=== PATIENT | female | born 1980 | race Caucasian/White ===

== ENCOUNTER → 2022-10-09 09:08 | Outpatient (BNVA) | payer MEDICARE, MEDICAID, SELFPAY | PROVIDERS: PCP Internal Medicine; Visit Provider Internal Medicine Rheumatology | DX: M25.561 Pain in right knee (principal); M25.562 Pain in left knee; M54.50 Low back pain, unspecified; M47.816 Spondylosis without myelopathy or radiculopathy, lumbar region; M25.521 Pain in right elbow; M79.7 Fibromyalgia; G89.29 Other chronic pain | CPT/HCPCS: 99202 ==

== ENCOUNTER 2024-04-07 07:52 | Outpatient (AMB) | payer MEDICARE, MEDICAID, SELFPAY ==
[2024-04-07 08:02] VITALS: BP 118/70; PULSE 89; O2SAT 98; BMI 40.6
--- NOTE | 2024-04-07 08:02 | MHC.OFFVIS ---
Vital Signs 04/07/24 08:02 Height 5 ft 4.5 in Weight 240 lb BMI 40.6 BP 118/70 Blood Pressure Location Lt brachial Position Sitting Pulse 89 Pulse Source Pulse Oximeter Pulse Oximetry (%) 98 Oxygen Delivery Method Room Air Intake Visit Reasons: Joint pain/CM Intake Note: Patient presents today for follow up on joint pain. She was last seen in the office by Dr. Dawkins on 10/09/2022. Allergies morphine Allergy (Severe, Verified 04/07/24 08:04) Shortness of Breath diclofenac Allergy (Intermediate, Verified 04/07/24 08:04) Angioedema amoxicillin Allergy (Unknown, Verified 04/07/24 08:04) Unknown apple Allergy (Unknown, Verified 04/07/24 08:04) Unknown azithromycin Allergy (Unknown, Verified 04/07/24 08:04) Rash doxycycline Allergy (Unknown, Verified 04/07/24 08:04) Rash peanut Allergy (Unknown, Verified 04/07/24 08:04) Unknown Sulfa (Sulfonamide Antibiotics) Allergy (Unknown, Verified 04/07/24 08:04) Unknown tizanidine Allergy (Unknown, Verified 04/07/24 08:04) Angioedema tree nut Allergy (Unknown, Verified 04/07/24 08:04) Unknown HPI Comments Details: Patient is a 43-year-old female with 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 Interval History: Patient last seen 10/2022. At that time was given a diagnosis of fibromyalgia and OA Today patient is here for a 2nd opinion. She states that she gets intermittent pain to her lateral elbows that occurs different points. She also gets pain to her Achilles tendon at times. Reports history of Raynaud's as well as dry eyes and dry mouth. Denies photosensitivity, alopecia, oral/nasal ulcers, sicca symptoms, lymphadenopathy, chest pain/shortness of breath, inflammatory type joint pain, foamy urine, lower extremity edema, muscle weakness. Also denies history of seizure, CVA, psychosis, history of kidney problems, history of cytopenias, history of VTE Has 7 children denies a history of recurrent 2nd trimester miscarriages. Rheumatologic History: Patient initially referred to Rheumatology 10/2022 with complaints of polyarthralgias. On evaluation including history and exam there was no evidence of inflammatory disease. The diagnosis was likely fibromyalgia with also osteoarthritis involving the lower back. Current Rheumatology Medication(s): [facility]LY [facility] Medical History (Updated 04/07/24 @ 08:38 by Sandee Mao MD) Polyarthralgia Abnormal cervical Papanicolaou smear Eczema Gestational diabetes Surgical History History of lumbar laminectomy Family History (Updated 10/03/22 @ 11:06 by Candice Barone RN) Maternal Grandmother Malignant tumor of breast Sister Disorder of thyroid gland Father Hypertensive disorder Hyperlipidemia Alcoholism Mother Disorder of thyroid gland Mood disorder Brother Obesity Maternal Aunt Diabetes mellitus Son Disorder of thyroid gland Maternal Uncle Schizoaffective disorder Social History Household Members: Spouse and Other Alcohol intake: never Patient Tobacco Use Status: Former Tobacco user Tobacco use type: Cigarette e-Cigarette/Vaping Use: Never Used Sexual orientation: Straight/Heterosexual Gender identity: Female Review of Systems Const Details: Review of Systems Constitutional: Denies fever, chills, weight loss ENT: Denies vision changes, eye pain or eye redness, dental caries, dry mouth GI: Denies nausea, vomiting, diarrhea, abdominal pain, change in BM Pulm: Denies SOB, WOODSON, hemoptysis, wheezing Cards: Denies chest pain, palpitations Skin: Denies nail changes, photosensitivity, DIAMOND SIZER: Denies headaches, weakness, paresthesias, recurrent falls MSK: as per HPI All other systems reviewed and are unremarkable except noted above Physical Exam CONSTITUTIONAL Patient is awake and alert. Cooperative. No acute distress HEENT Eyes: Belinda's test result 10-15 mm bilaterally. Possible dry eyes Mouth: Poor dentition. No ulcers CHEST/RESP Normal respiratory effort, able to speak in complete sentences. Clear to auscultation bilaterally no crackles, rales, wheezes. CARDIO Regular rate and rhythm. S1 and S2 heard no murmurs. MSK Hands: No deformities noted. No synovitis noted to the MCPs, PIPs or DIPs. Wrists: No deformities noted. No synovial hypertrophy. Full range of motion to the bilateral wrists. Elbows: Tenderness to palpation of the left lateral epicondyle. This pain was exacerbated by resisted wrists flexion but not wrist extension. Medial left epicondyle without tenderness to palpation. Right elbow without any abnormalities Shoulders: Full range of motion to active and passive movement. Negative impingement Knees: Mild patellofemoral crepitations noted bilaterally. No effusion. Tender points: No tenderness to palpation of the neck, shoulders, chest, elbows, hips, buttocks or knees. SKIN Blanching erythematous patches without overlying scale or skin eruption occurring on bilateral upper arms. Normal nail fold capillaries on capillaroscopy Results Reviewed Results Reviewed: X-ray bilateral knees 10/2022 Findings: There is no evidence of acute or healing fracture, dislocation or bone lesion. No arthritic changes. No osteochondral defects or intra-articular loose bodies. No evidence of joint effusion. Impression normal 10/2022 CRP<0.3 ESR 5 AMAYA positive 1: 80, homogeneous new line negative EMMA panel TSH 0.69 Assessment & Plan Assessment & Plan (1) Polyarthralgia: Code(s): M25.50 - Pain in unspecified joint Category: Medical Plan: #Polyarthralgias At this time low suspicion for an autoimmune disease related cause of her underlying polyarthralgias. She does have some dry eyes but not enough to meet criteria for Sjogren's disease. She does not have any signs of inflammatory arthritis on exam today. Her elbow pain is more in keeping with lateral epicondylitis. She also did not have any enthesitis involving her Achilles tendon. Discuss this with the patient and she understands these findings. Of note she did have a repeat AMAYA done by her primary which was now negative. I offered to do another set of blood work but she said that she would prefer not to. Plan I spent 20 minutes reviewing the record and labs, seeing the patient, discussing the treatment plan and documenting in the medical record ? Coding Level of Care Code Est Pt Level 3 (59933) Diagnoses Polyarthralgia M25.50
== END 2024-04-07 08:36 | disposition home or self-care (01) ==
LOC: HO.RHE 07:53
PROVIDERS: PCP Internal Medicine; Visit Provider Student in an Organized Health Care Education/Training Program
DX: M25.50 Pain in unspecified joint (principal)
CPT/HCPCS: 99213

== ENCOUNTER → 2024-04-07 07:52 | Outpatient (BNVA) | payer MEDICARE, MEDICAID, SELFPAY | PROVIDERS: PCP Internal Medicine; Visit Provider Student in an Organized Health Care Education/Training Program | DX: M25.50 Pain in unspecified joint (principal) | CPT/HCPCS: 99212 ==